=== PATIENT | male | born 1965 | race Caucasian/White ===

== ENCOUNTER → 2023-10-13 08:54 | Outpatient (REF) | payer BC, SELFPAY ==
[2023-10-13 10:03] LABS: HDL Cholesterol 58 mg/dl; LDL Cholesterol, Calculated 130 mg/dl; Total Cholesterol 210 mg/dl (50-199); Triglyceride 111 mg/dl (10-149); Very Low Density Lipoprotein 22 mg/dl (0-30)
[2023-10-14 15:56] LABS: Ferritin 44.9 ng/ml (17.9-464.0)
== END ==
LOC: REG 08:54
PROVIDERS: ATTENDING PHYSICIAN Family Medicine
DX: E03.9 Hypothyroidism, unspecified (principal); E78.2 Mixed hyperlipidemia
CPT/HCPCS: 36415; 80061; 82728

== ENCOUNTER → 2024-03-29 06:43 | Outpatient (REF) | payer BC, SELFPAY ==
[2024-03-29 07:42] LABS: % Basophils 0.3 % (0-2); % Eosinophils 1.4 % (0-6); % Immature Granulocytes 0.6 % (0-0.5); % Lymphocytes 32.9 % (20.5-51.1); % Monocytes 10.3 % (1.7-9.3); % Neutrophils 54.5 % (42.2-75.2); Absolute Eosinophils 0.1 10^3/uL (0-0.7); Absolute Lymphocytes 2.2 10^3/uL (1.2-3.4); Absolute Monocytes 0.7 10^3/uL (0.1-0.6); Absolute Neutrophils 3.6 10^3/uL (1.4-6.5); Hematocrit 45.3 % (39.0-52.0); Hemoglobin 15.4 g/dL (13.0-18.0); Mean Corpuscular Hgb 29.1 pg (27.0-31.0); Mean Corpuscular Volume 85.5 fL (80.0-94.0); Mean Platelet Volume 11.3 fL (7.4-10.4); Nucleated Red Blood Cells % 0 % (-); Platelet Count 163 10^3/uL (130-400); Red Cell Dist. Width 12.7 % (11.5-14.5); White Blood Cell Count 6.6 10^3/uL (4.8-10.8)
[2024-03-29 08:42] LABS: ALT (SGPT) 36 U/L (0-50); AST (SGOT) 37 U/L (17-59); Albumin 4.4 g/dl (3.5-5.0); Alkaline Phosphatase 57 U/L (38-126); Blood Urea Nitrogen 24 mg/dl (9-20); Calcium 9.5 mg/dl (8.4-10.2); Carbon Dioxide 28 mmol/L (22-30); Chloride 105 mmol/L (98-107); Glucose 98 mg/dl (70-99); HDL Cholesterol 51 mg/dl; LDL Cholesterol, Calculated 127 mg/dl; Potassium 4.5 mmol/L (3.5-5.1); Sodium 144 mmol/L (135-145); Total Bilirubin 0.8 mg/dl (0.2-1.3); Total Cholesterol 207 mg/dl (50-199); Total Protein 6.8 g/dl (6.3-8.2); Triglyceride 146 mg/dl (10-149); Very Low Density Lipoprotein 29 mg/dl (0-30); eGFR > 60.00
[2024-03-29 08:59] LABS: PSA, Total - Screen 1.19 ng/ml (0.0-4.0); TSH Reflex To Free T4 3.86 uIU/ml (0.47-4.68)
[2024-03-29 10:44] LABS: Glycohemoglobin (HgbA1c) 5.6 % (4.0-5.6)
== END ==
LOC: REG 06:43
PROVIDERS: ATTENDING PHYSICIAN Physician Assistant; FAMILY PHYSICIAN Family Medicine
DX: E03.9 Hypothyroidism, unspecified (principal); E78.2 Mixed hyperlipidemia; R03.0 Elevated blood-pressure reading, without diagnosis of hypertension; R97.20 Elevated prostate specific antigen [PSA]; R73.01 Impaired fasting glucose; R74.8 Abnormal levels of other serum enzymes
CPT/HCPCS: 36415; 80053; 80061; 83036; 84443; 85025; G0103